=== PATIENT | male | born 1955 | race Caucasian/White ===

== ENCOUNTER → 2020-05-09 | Outpatient (CLI) | payer OTHER ==
[~2020-05-09] MED LIST: ATORVASTATIN CA20 MG PO; ELIQUIS5 MG PO; IRBESARTAN300 MG PO
== END ==
LOC: M.LAB 12:41
PROVIDERS: ATTEND Surgery
DX: Z01.812 Encounter for preprocedural laboratory examination (principal); Z20.822 Contact with and (suspected) exposure to COVID-19; L05.01 Pilonidal cyst with abscess

== ENCOUNTER → 2020-05-13 | Day surgery (SDC) | payer OTHER ==
--- NOTE | ~2020-05-13 | OP ---
[facility] [address] [place] [address] OPERATIVE REPORT Name: ADARSH SONG Room: [facility].#: [id number] Admission: 05/13/20 Attend Phys: Raulito Frazier Discharge: Date of : 59 Report #: [id number] THIS REPORT FOR: cc: Bridgette Jack MD, Sarah Beth MD ~ Raulito Frazier MD DATE OF SERVICE: 05/13/2020 PREOPERATIVE DIAGNOSIS: Pilonidal cyst. POSTOPERATIVE DIAGNOSIS: Pilonidal cyst. OPERATION: Excision of pilonidal cyst, simple. SURGEON: Raulito Frazier MD ANESTHESIA: General. ESTIMATED BLOOD LOSS: Minimal. SPECIMEN: Pilonidal cyst. DESCRIPTION OF PROCEDURE: After informed consent was obtained, the patient was brought to the operating room and placed supine. SCDs were placed and working, preoperative antibiotics were administered, general anesthesia was induced. The patient was placed in the left lateral decubitus position. He had an axillary roll. The area was then prepped and draped in the usual sterile fashion. An elliptical incision was made around the palpable mass in the cleft just to the left of the midline. Immediately, a pus pocket was encountered. This was suctioned. The cyst was dissected around and fully excised. The area was then copiously irrigated with normal saline. It was packed with sterile gauze. Sterile dressings were applied. COMPLICATIONS: None. DISPOSITION: The patient was taken to recovery in satisfactory condition. By: [id number] Frazier MD /nt
[2020-05-13 07:25] LABS: HEMATOCRIT 43.4 % (42.0-52.0); HEMOGLOBIN 14.6 gm/dL (14.0-18.0); MCH 29.5 pg (26.0-34.0); MCHC 33.6 g/dL (28.0-37.0); MCV 87.8 fL (80.0-100.0); MPV 7.3 fl. (7.2-11.1); RBC 4.95 mil/uL (4.50-6.00); RDW-CV 12.6 % (10.5-14.5); WBC 7.4 thou/uL (4.0-11.0)
[2020-05-13 07:32] LABS: CALCIUM 9.1 mg/dL (8.5-10.1); CREATININE 1.7 mg/dL (0.6-1.3); POTASSIUM 4.8 mmol/L (3.5-5.1)
[2020-05-13 07:36] LABS: PROTIME 10.7 Seconds (9.20-11.50)
--- NOTE | 2020-05-13 14:41 | EKG ---
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
== END | disposition home or self-care (01) ==
LOC: M.SUR
PROVIDERS: ATTEND Surgery
DX: L05.91 Pilonidal cyst without abscess (principal); I10 Essential (primary) hypertension; Z79.899 Other long term (current) drug therapy; Z79.01 Long term (current) use of anticoagulants